=== PATIENT | female | born 1985 | race Hispanic/Latino ===

== ENCOUNTER 2018-11-06 21:23 | Emergency (ER) | payer MEDICARE ==
[~2018-11-06] VITALS: Ht 152.4 cm; Wt 79.4 kg
--- OUTSIDE RECORDS SUMMARY | 2018-11-06 21:25 | XMS REPORT ---
[facility] Address Unknown Phone Unavailable Care Team Providers Care Cashier And Salesperson Name Role Phone Unavailable Unavailable Payers Payer Name Policy Type Policy Number Effective Date Expiration Date Problems This patient has no known problems. Allergies, Adverse Reactions, Alerts Allergy Name Allergy Type Status Severity Reaction(s) Onset Date Inactive Date Treating Clinician Comments No Known Drug Intolerances DA Active U 2015-04-07 00:00:00 Medications This patient has no known medications. Encounters Start Date/Time End Date/Time Encounter Type Admission Type Attending Clinicians [facility] Facility Care Department Encounter ID 2018-10-02 21:30:00 2018-10-02 21:30:00 Emergency E [facility] [id number]
--- NOTE | 2018-11-06 22:03 | Diagnostic Imaging Report ---
Exam: Right hand 3 views History: Pain Comparison: None. Findings: No fracture or malalignment. Joint spaces preserved. No abnormal soft tissue calcification or soft tissue defect. Impression: No acute osseous abnormality Signed by: Dr. Cody Riley M.D. on 11/06/2018 10:00 PM
[2018-11-06 22:57] VITALS: BP 127/90
== END 2018-11-06 22:59 | disposition home or self-care (01) ==
LOC: ER 21:23
DX: S63.650A Sprain of metacarpophalangeal joint of right index finger, initial encounter (principal); S60.221A Contusion of right hand, initial encounter; W51.XXXA Accidental striking against or bumped into by another person, initial encounter; Y92.008 Other place in unspecified non-institutional (private) residence as the place of occurrence of the external cause; F43.10 Post-traumatic stress disorder, unspecified; F17.210 Nicotine dependence, cigarettes, uncomplicated
CPT/HCPCS: 99283